=== PATIENT | male | born 1955 | race Caucasian/White ===

== ENCOUNTER 2021-06-11 11:09 | Day surgery (SDC) | payer MEDICARE ==
[2021-06-10 14:48] VITALS: BMI 38.7
[2021-06-11] MEDS ORDERED: PROPOFOL 200 MG/20 ML VIAL ONE (12:36)
[2021-06-11] MEDS ORDERED: Lidocaine 1% PF 5 ML VIAL ONE (12:36)
[2021-06-11] MEDS ORDERED: Fentanyl 100 MCG/2 ML VIAL ONE ×2 (13:15→13:26)
[2021-06-11] MEDS ORDERED: Midazolam HCl 2 mg/2 ml Vial ONE (13:26)
== END 2021-06-11 16:05 | disposition home or self-care (01) ==
LOC: MRI 11:09
PROVIDERS: ATTEND Anesthesiology Pain Medicine
DX: M48.062 Spinal stenosis, lumbar region with neurogenic claudication (principal); M47.816 Spondylosis without myelopathy or radiculopathy, lumbar region; D17.79 Benign lipomatous neoplasm of other sites; I10 Essential (primary) hypertension; Z79.82 Long term (current) use of aspirin; Z79.84 Long term (current) use of oral hypoglycemic drugs; Z79.899 Other long term (current) drug therapy; Z88.2 Allergy status to sulfonamides
CPT/HCPCS: 72148; J2250; J2704; J3010

== ENCOUNTER 2021-10-21 13:23 | Outpatient (CLI) | payer MEDICARE ==
[2021-10-21 15:05] LABS: Hemoglobin 10.9 g/dL (13.5-17.5); Mean Corpuscular HGB CONC 32.8 g/dL (32.0-36.0); Mean Corpuscular Hemoglobin 29.4 pg (27.0-33.0); Mean Corpuscular Volume 89.5 fl (81.2-95.1); Mean Platelet Volume 9.1 fl (7.4-10.4); Platelet Count 207 10x3/uL (150-450); RBC Distribution Width 13.9 % (11.5-14.5); Red Blood Cell (RBC) Count 3.71 10x6/uL (4.32-5.72); White Blood Cell (WBC) Count 6.5 10x3/uL (3.5-10.5)
[2021-10-21 15:28] LABS: PTT 31.5 sec (22.0-33.0); Prothrombin Time 11.2 sec (9.5-12.1)
[2021-10-21 15:50] LABS: Anion Gap 18 mmol/L (10-20); BUN (Urea Nitrogen) 36 mg/dL (8.4-25.7); Calc. Creatinine Clearance 0 mL/min (70-130); Calcium 9.7 mg/dL (7.8-10.44); Carbon Dioxide 26 mmol/L (23-31); Chloride 98 mmol/L (98-107); Glucose 310 mg/dL (80-115); Potassium 4.6 mmol/L (3.5-5.1); Sodium 137 mmol/L (136-145)
[2021-10-21 22:23] LABS: SARS-CoV-2 PCR by NAA Not Detected (NotDetected)
== END 2021-10-21 13:24 | disposition home or self-care (01) ==
LOC: LABBT 13:23
PROVIDERS: ATTEND Surgery
DX: Z01.818 Encounter for other preprocedural examination (principal); Z20.822 Contact with and (suspected) exposure to COVID-19
CPT/HCPCS: 80048; 85027; 85610; 85730; 93005; U0003; U0005; 93010

== ENCOUNTER 2021-10-26 07:45 | Observation (INO) | payer MEDICARE ==
[2021-10-25 11:57] VITALS: BMI 38.7
[2021-10-26] MEDS ORDERED: Thrombin 5000 UNITS/5 ML VIAL ONE (09:31)
[2021-10-26] MEDS ORDERED: Fentanyl 100 MCG/2 ML VIAL ONE (10:14)
[2021-10-26] MEDS ORDERED: SUGAMMADEX SODIUM 200 MG/2 ML VIAL ONE (10:14)
[2021-10-26] MEDS ORDERED: ceFAZolin 2 GM/DEX 5% 100 ML BAG ONE (10:20)
[2021-10-26] MEDS ORDERED: Midazolam HCl 2 mg/2 ml Vial ONE (10:25)
[2021-10-26] MEDS ORDERED: Ondansetron PF 4 MG/2 ML Vial ONE (10:28)
[2021-10-26] MEDS ORDERED: Lidocaine 1% PF 5 ML VIAL ONE (10:28)
[2021-10-26] MEDS ORDERED: Rocuronium Bromide 10 MG/ML (10ML VIAL) ONE (10:28)
[2021-10-26] MEDS ORDERED: PROPOFOL 200 MG/20 ML VIAL ONE (10:28)
[2021-10-26] MEDS ORDERED: Dexamethasone 20 MG/5 ML VIAL ONE (10:28)
[2021-10-26] MEDS ORDERED: Phenylephrine 10 MG/ML VIAL ONE (10:28)
[2021-10-26] MEDS ORDERED: HYDROmorphone 2 MG/ML VIAL ONE (12:52)
[2021-10-26] MEDS ORDERED: Acetaminophen 325 MG TAB PO PRN (13:30)
[2021-10-26] MEDS ORDERED: Acetaminophen/Codeine 30-300mg Tablet PO PRN (13:30)
[2021-10-26] MEDS ORDERED: tiZANidine HCl 4 MG TAB PO PRN (13:30)
[2021-10-26] MEDS ORDERED: HYDROcodone/Acetaminophen 7.5/325 mg Tablet PO PRN (13:30)
[2021-10-26] MEDS ORDERED: hydrALAZINE 20 MG/ML VIAL SLOW IVP PRN (13:33)
[2021-10-26] MEDS ORDERED: ALPRAZolam 0.5 MG TAB PO PRN (13:34)
[2021-10-26] MEDS ORDERED: Morphine 4 MG/ML VIAL SLOW IVP PRN (19:17)
[2021-10-26] MEDS: Sodium Chloride 0.9% 1,000 ML IV SCH (19:52)
[2021-10-26] MEDS: ceFAZolin Sodium/D5W 2 GM in Premix Bag 1 BAG IVPB SCH (19:52)
[2021-10-26] MEDS ORDERED: Zolpidem Tartrate 5 MG TAB PO SCH (21:00)
[2021-10-26] MEDS ORDERED: Polyethylene Glycol 3350 17 GM Packet PO SCH (21:00)
[2021-10-26] MEDS ORDERED: Atorvastatin Calcium 10 MG TAB PO SCH (21:00)
[2021-10-26] MEDS ORDERED: Dextrose 5% in Water 1,000 ML IV PRN (22:45)
[2021-10-26] MEDS ORDERED: Dextrose 50% Abboject 50 ML SYRINGE IVP PRN (22:45)
[2021-10-26] MEDS: traMADol HCl 50 MG TAB PO PRN (23:08)
[2021-10-26] MEDS: HumaLOG 300 UNITS/3 ML VIAL SC PRN (23:09)
[2021-10-27] MEDS: Sodium Chloride 0.9% 1,000 ML IV SCH (02:24)
[2021-10-27] MEDS: ceFAZolin Sodium/D5W 2 GM in Premix Bag 1 BAG IVPB SCH (03:37)
[2021-10-27] MEDS: traMADol HCl 50 MG TAB PO PRN ×2 (06:02→12:04)
[2021-10-27] MEDS: HumaLOG 300 UNITS/3 ML VIAL SC PRN (06:06)
[2021-10-27] MEDS ORDERED: Furosemide 40 MG TAB PO SCH (09:00)
[2021-10-27] MEDS ORDERED: Multivit, Therapeutic 1 TAB PO SCH (09:00)
[2021-10-27] MEDS ORDERED: Pantoprazole 40 MG GRANULES PACKET PO SCH (09:00)
[2021-10-27] MEDS ORDERED: Amlodipine 5 MG TAB PO SCH (09:00)
[2021-10-27] MEDS ORDERED: Pioglitazone HCl 15 MG TAB PO SCH (09:00)
[2021-10-27 12:37] VITALS: BP 118/62; TEMP 98
== END 2021-10-27 13:24 | disposition home or self-care (01) ==
LOC: SDC 07:45 → MSONC 13:36
PROVIDERS: ADMIT Surgery; ATTEND Surgery
PROC: 01NB0ZZ Release Lumbar Nerve, Open Approach (ICD-10-PCS; principal; 2021-10-26)
PROC: 0QB00ZZ Excision of Lumbar Vertebra, Open Approach (ICD-10-PCS; 2021-10-26)
PROC: 0SB20ZZ Excision of Lumbar Vertebral Disc, Open Approach (ICD-10-PCS; 2021-10-26)
DX: M48.062 Spinal stenosis, lumbar region with neurogenic claudication (principal); M71.38 Other bursal cyst, other site; M51.16 Intervertebral disc disorders with radiculopathy, lumbar region; M47.26 Other spondylosis with radiculopathy, lumbar region; M48.07 Spinal stenosis, lumbosacral region; M51.27 Other intervertebral disc displacement, lumbosacral region; I10 Essential (primary) hypertension; E78.5 Hyperlipidemia, unspecified; E11.9 Type 2 diabetes mellitus without complications; K21.9 Gastro-esophageal reflux disease without esophagitis; M10.9 Gout, unspecified; Z87.891 Personal history of nicotine dependence; Z79.82 Long term (current) use of aspirin; Z79.84 Long term (current) use of oral hypoglycemic drugs; Z79.899 Other long term (current) drug therapy; Z88.2 Allergy status to sulfonamides
CPT/HCPCS: 63030; 63047; 63048; 63267; 76000; 82962 ×2; 93005; 96374; 96376; G0378 ×2; 36416; 93010; J1100; J1170; J1815; J2250; J2370; J2405; J2704; J3010; J3370; J7050